=== PATIENT | female | born 1955 | race Caucasian/White ===

== ENCOUNTER 2022-08-18 08:47 | Outpatient (CLI) | payer BC | END 2022-08-18 08:48 | disposition home or self-care (01) | LOC: CSHMAMMO 08:47 | PROVIDERS: ATTEND Obstetrics & Gynecology | DX: N64.4 Mastodynia (principal); N63.20 Unspecified lump in the left breast, unspecified quadrant | CPT/HCPCS: G0279 ==

== ENCOUNTER 2023-06-07 07:57 | Outpatient (CLI) | payer BC | END 2023-06-07 07:58 | disposition home or self-care (01) | LOC: CSHULT 07:57 | PROVIDERS: ATTEND Family Medicine | DX: D17.1 Benign lipomatous neoplasm of skin and subcutaneous tissue of trunk (principal) | CPT/HCPCS: 76705 ==